=== PATIENT | female | born 1940 | race Caucasian/White ===

== ENCOUNTER 2016-08-27 12:56 | Emergency (ER) | payer MEDICARE, OTHER ==
[2016-08-27] MEDS ORDERED: methylPREDNISolone SOD SUCCI 125 MG/2 ML VIAL IM STA (13:44)
[2016-08-27] MEDS ORDERED: HYDROmorphone 1 MG/ML 1 ML SYRINGE IM STA (13:44)
--- NOTE | 2016-08-27 13:50 | ED ---
Back Pain HPI - General Chief Complaint: Back Pain/Injury Stated Complaint: Back Pain Time Seen by Provider: 08/27/16 13:33 Source: patient, RN notes reviewed Limitations: no limitations - History of Present Illness Initial Comments: 75-year-old female presents to the emergency department with a chief complaint of numbness and tingling to the right foot. Patient has had issues with low back pain and had back surgery a few months ago. Patient states ever since she got off a plane ride 3 weeks ago she says numbness and tingling to her right foot. Patient states that she can feel the foot it just feels different. Patient states she was starting gabapentin however does not seem to be improving her symptoms. Conjunctivae loss of bowel or bladder function. Patient denies any falls or traumas. Patient states that she try to get and Dr. Ralph at that she is not so she was concerned. Patient states she hasn't had any other symptoms with this. Patient denies any numbness or tingling in around since states his numbness and tingling has been given occurring for about 3 weeks. Patient denies any recent fever, chills, shortness of breath, chest pain, abdominal pain, nausea vomiting, numbness or tingling, dysuria or hematuria, constipation or diarrhea, headaches or visual changes, or any other current symptoms. - Related Data Previous Rx's Medication Instructions Recorded predniSONE 50 mg PO DAILY #5 tab 08/27/16 Allergies Allergy/AdvReac Type Severity Reaction Status Date / Time Sulfa (Sulfonamide Allergy Rash/Hives Verified 08/27/16 13:24 Antibiotics) Review of Systems ROS Statement: Those systems with pertinent positive or pertinent negative responses have been documented in the HPI. ROS Other: All systems not noted in ROS Statement are negative. Past Medical History Past Medical History: Hyperlipidemia, Hypertension, Thyroid Disorder Additional Past Medical History / Comment(s): glaucoma History of Any Multi-Drug Resistant Organisms: None Reported Past Surgical History: Back Surgery, Bladder Surgery, Cholecystectomy, Hysterectomy, Orthopedic Surgery Additional Past Surgical History / Comment(s): rt heel, Past Psychological History: No Psychological Hx Reported Smoking Status: Never smoker Past Alcohol Use History: None Reported Past Drug Use History: None Reported General Exam Limitations: no limitations General appearance: alert, in no apparent distress Head exam: Present: atraumatic, normocephalic, normal inspection ENT exam: Present: normal exam, mucous membranes moist Neck exam: Present: normal inspection Respiratory exam: Present: normal lung sounds bilaterally. Absent: respiratory distress, wheezes, rales, rhonchi, stridor Cardiovascular Exam: Present: regular rate, normal rhythm, normal heart sounds. Absent: systolic murmur, diastolic murmur, rubs, gallop, clicks Extremities exam: Present: normal inspection, full ROM, normal capillary refill. Absent: tenderness, pedal edema, joint swelling, calf tenderness Back exam: Present: normal inspection, full ROM. Absent: tenderness, CVA tenderness (R), CVA tenderness (L) Neurological exam: Present: alert, oriented X3, CN II-XII intact, normal gait, reflexes normal. Absent: motor sensory deficit Psychiatric exam: Present: normal affect, normal mood Skin exam: Present: warm, dry, intact, normal color. Absent: rash Course Vital Signs 08/27/16 08/27/16 13:20 14:33 Temperature 98.3 F Pulse Rate 65 64 Respiratory 20 15 Rate Blood Pressure 215/90 121/63 O2 Sat by Pulse 99 95 Oximetry Medical Decision Making - Medical Decision Making 75-year-old female presents for numbness and tingling to the right foot she does have full sensation and range of motion. There is no specific dermatome affected. This time CAT scan was performed and the patient's back and pain medication was given. At this time the patient is feeling better. We did discuss the results we did discuss that there is a suspicion for possible radiculopathy as well as the bulging. We did discuss that we will start answered for home. We'll give her follow-up Dr. Ralph we did discuss return parameters questions. Patient stated that she understood and is doing plan. She'll be discharged. - Radiology Data Radiology results: report reviewed, image reviewed Disposition Clinical Impression: Lumbar radiculopathy Disposition: HOME SELF-CARE Condition: Stable Instructions: Chronic Back Pain (ED) Additional Instructions: Please use medication as discussed. Please follow up with family doctor if symptoms have not improved over the next two days. Please return to the emergency room if your symptoms increase or worsen or for any other concerns. Prescriptions: predniSONE 50 mg PO DAILY #5 tab Referrals: Keyona Arzola MD [STAFF PHYSICIAN] - 1-2 days Brennan Ralph DO [Doctor of Osteopathic Medicine] - 1-2 days Time of Disposition: 14:55
--- NOTE | 2016-08-27 14:28 | CT ---
EXAMINATION TYPE: CT lumbar spine wo con DATE OF EXAM: 08/27/2016 COMPARISON: NONE HISTORY: Back pain CT DLP: 1289.2 mGycm Automated exposure control for dose reduction was used. An unenhanced CT of the lumbar spine was performed. Bone and soft tissue window settings are submitt ed as well as coronal and sagittal reconstructions. FINDINGS: There is a spinal curvature. Multilevel spondylosis is present. Loss of disc height greatest at L5-S1 , some calcification of the disc is noted. Some prominence of the right renal collecting system thought likely due to ureteropelvic junction raul nosis. Multiple calcifications are seen within the spleen compatible with old granulomatous disease. There is a gastric diverticulum present. Lack of contrast could compromise sensitivity. Diverticular changes associated with the colon. L1-L2: Minimal posterior broad-based disc bulge causes slight anterior mass effect on the thecal sac. L2-L3: Posterior broad-based disc bulge causes anterior mass effect on the thecal sac. There may be m ild to moderate central canal stenosis. No significant foraminal encroachment. L3-L4: Minimal anterolisthesis grade 1 L3-4 contributes to cause some foraminal encroachment, there i s some circumferential endplate disc complex extends towards the neural foramina. Facet arthropathy w ith hypertrophy of the ligamentum flavum results in moderate central canal stenosis. This is likely c ontributed by the listhesis. L4-L5: Posterior broad-based disc bulge likely contacts anterior thecal sac, there may be some mild c entral canal stenosis. No significant foraminal encroachment. There is facet arthropathy change prese nt encroaching on the lateral recesses, hypertrophic changes in the ligamentum flavum noted. L5-S1: There is a partial laminectomy on the right. Circumferential extension of endplate disc comple x results in bilateral foraminal encroachment. Some granulation tissue may be present at the surgical bed posteriorly possibly contacting the S1 nerve root on the right, posterior thecal sac. Posterior circumferential disc bulge may contact the proximal S1 nerve roots right greater than left, correlate for radiculopathy. No significant central stenosis. IMPRESSION: Degenerative disc disease, facet arthropathy, multilevel foraminal encroachment. Spinal c urvature. Old granulomatous disease and additional findings above. Consider lumbar MRI. No paraspinal masses are identified. Lumbar segments are intact.
[2016-08-27] MEDS ORDERED: ONDANSETRON ODT 4 MG TAB PO STA ×2 (14:34→15:05)
[2016-08-27 15:34] VITALS: BP 124/60; PULSE 76; RESP 16; TEMP 97.8
[2016-08-27] MEDS ORDERED: ONDANSETRON 4 MG ODT STARTER PACK 2 TAB BTL PO STA (16:53)
== END 2016-08-27 16:56 | disposition home or self-care (01) ==
LOC: EC 12:56
DX: M54.16 Radiculopathy, lumbar region (principal); Z88.2 Allergy status to sulfonamides
CPT/HCPCS: 72131; 99283; 96372 ×2; J2930; J1170; S0119

== ENCOUNTER → 2016-09-24 | Outpatient (CLI) | payer MEDICARE, OTHER ==
[2016-09-24 16:18] LABS: Blood Urea Nitrogen 14 mg/dL (7-17); Non-African American GFR(MDRD) >60 (>60 ml/min/1.73 sqM)
== END | disposition home or self-care (01) ==
LOC: LABWHC1 15:51
PROVIDERS: ATTEND Physical Medicine & Rehabilitation
DX: Z01.812 Encounter for preprocedural laboratory examination (principal); M51.17 Intervertebral disc disorders with radiculopathy, lumbosacral region; M47.27 Other spondylosis with radiculopathy, lumbosacral region; M96.1 Postlaminectomy syndrome, not elsewhere classified; M54.5 Low back pain; Z98.890 Other specified postprocedural states
CPT/HCPCS: 36415; 82565; 84520